=== PATIENT | male | born 1985 | race American Indian/Alaskan Native ===

== ENCOUNTER 2018-01-20 18:15 | Emergency (ER) | payer OTHER ==
[2018-01-20] MEDS ORDERED: MOTRIN PO ONE (20:26)
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
[2018-01-20 21:31] VITALS: BP 116/88
== END 2018-01-20 21:30 | disposition home or self-care (01) ==
LOC: ED 18:15
DX: M54.6 Pain in thoracic spine (principal); V89.2XXA Person injured in unspecified motor-vehicle accident, traffic, initial encounter; Y93.89 Activity, other specified; Y92.89 Other specified places as the place of occurrence of the external cause; Y99.8 Other external cause status
CPT/HCPCS: 99282

== ENCOUNTER 2019-05-29 13:08 | Emergency (ER) | payer OTHER ==
--- NOTE | 2019-05-29 13:27 | Emergency Department Report ---
Blank Doc - Documentation Documentation: 34-year-old male that presents with upper abdominal pain and nausea. This initial assessment/diagnostic orders/clinical plan/treatment(s) is/are subject to change based on patient's health status, clinical progression and re- assessment by fellow clinical providers in the ED. Further treatment and workup at subsequent clinical providers discretion. Patient/guardians urged not to elope from the ED as their condition may be serious if not clinically assessed and managed. Initial orders include: 1- Patient sent to [facility] for further evaluation and treatment 2- labs 3- UA
[2019-05-29 14:26] LABS: Basophils # (Auto) 0.1 K/mm3 (0.0-0.1); Basophils % (Auto) 0.7 % (0.0-1.8); Eosinophils # (Auto) 0.5 K/mm3 (0.0-0.4); Eosinophils % (Auto) 3.1 % (0.0-4.3); Hematocrit 38.7 % (35.5-45.6); Hemoglobin 12.7 gm/dl (11.8-15.2); Lymphocytes # (Auto) 2.1 K/mm3 (1.2-5.4); Lymphocytes % (Auto) 13.9 % (13.4-35.0); Mean Corpuscular HGB Conc 33 % (32-34); Mean Corpuscular Volume 96 fl (84-94); Monocytes # (Auto) 1.5 K/mm3 (0.0-0.8); Monocytes % (Auto) 9.8 % (0.0-7.3); Platelet Count 676 K/mm3 (140-440); Red Blood Count 4.06 M/mm3 (3.65-5.03); Red Cell Distribution Width 13.9 % (13.2-15.2)
[2019-05-29 14:50] LABS: Alanine Aminotransferase 17 units/L (7-56); Albumin 3.4 g/dL (3.9-5); BUN/Creatinine Ratio 8; Blood Urea Nitrogen 7 mg/dL (9-20); Calcium 9.6 mg/dL (8.4-10.2); Hemolysis Index 51
[2019-05-29 14:52] LABS: Bilirubin,Urine NEG (Negative); Blood,Urine SM (Negative); Color,Urine Amber (Yellow); Mucus,Urine 1+ /HPF
--- NOTE | 2019-05-29 17:12 | Emergency Department Report ---
<MARIO NEWELL - Last Filed: 05/29/19 17:27> ED General Adult HPI - General Chief complaint: Abdominal Pain Stated complaint: ABD PAIN/NIGHT SWEAT Time Seen by Provider: 05/29/19 13:26 Source: patient Mode of arrival: Ambulatory Limitations: No Limitations - History of Present Illness Initial comments: The patient presents to the emergency department for chief complaint of upper abdominal pain/chest pain and night sweats for the last couple of nights. Patient denies any nausea,vomiting, or diarrhea. Patient states that he went on a cruise just prior to [place] and drunk a lot of alcohol during the cruise. Of note the patient travel to [place] for his cruise via motor vehicle and return home via the same old transportation. Patient does complain of some mild shortness of breath especially stating he cannot catch his breath when taking a deep breath. Patient does have a past medical history of HIV but takes his m edication daily. The patient states this pain has been present and continuous for the last week . -: Sudden Location: chest, abdomen Radiation: non-radiation Severity scale (0 -10): 3 Quality: dull Consistency: constant Improves with: none Worsens with: none Associated Symptoms: denies other symptoms Treatments Prior to Arrival: none - Related Data Previous Rx's Medication Instructions Recorded Last Taken Type Cyclobenzaprine [Flexeril] 10 mg PO QHS PRN #10 tablet 01/20/18 Unknown Rx Ibuprofen [Motrin] 600 mg PO Q8H PRN #30 tablet 01/20/18 Unknown Rx Esomeprazole Magnesium [NexIUM] 40 mg PO QDAY #30 capsule. 05/29/19 Unknown Rx Allergies Allergy/AdvReac Type Severity Reaction Status Date / Time No Known Allergies Allergy Verified 01/20/18 18:20 ED Review of Systems Comment: All other systems reviewed and negative Constitutional: denies: chills, fever Eyes: denies: eye pain, eye discharge, vision change ENT: denies: ear pain, throat pain Respiratory: denies: cough, shortness of breath, wheezing Cardiovascular: denies: chest pain, palpitations Endocrine: no symptoms reported Gastrointestinal: denies: abdominal pain, nausea, diarrhea Genitourinary: denies: urgency, dysuria Musculoskeletal: denies: back pain, joint swelling, arthralgia Skin: denies: rash, lesions Neurological: denies: headache, weakness, paresthesias Psychiatric: denies: anxiety, depression Hematological/Lymphatic: denies: easy bleeding, easy bruising ED Past Medical Hx - Past Medical History Previous Medical History?: No - Surgical History Past Surgical History?: No - Social History Smoking Status: Never Smoker Substance Use Type: Alcohol, Marijuana - Medications Home Medications: Home Medications Medication Instructions Recorded Confirmed Last Taken Type Cyclobenzaprine [Flexeril] 10 mg PO QHS PRN #10 tablet 01/20/18 Unknown Rx Ibuprofen [Motrin] 600 mg PO Q8H PRN #30 tablet 01/20/18 Unknown Rx Esomeprazole Magnesium [NexIUM] 40 mg PO QDAY #30 capsule. 05/29/19 Unknown Rx ED Physical Exam - General Limitations: No Limitations General appearance: alert, in no apparent distress - Head Head exam: Present: atraumatic, normocephalic - Eye Eye exam: Present: normal appearance, PERRL, EOMI - ENT ENT exam: Present: mucous membranes moist - Neck Neck exam: Present: normal inspection - Respiratory Respiratory exam: Present: normal lung sounds bilaterally. Absent: respiratory distress - Cardiovascular Cardiovascular Exam: Present: regular rate, normal rhythm. Absent: systolic murmur, diastolic murmur, rubs, gallop - GI/Abdominal GI/Abdominal exam: Present: soft, normal bowel sounds. Absent: distended, tenderness - Rectal Rectal exam: Present: deferred - Extremities Exam Extremities exam: Present: normal inspection - Back Exam Back exam: Present: normal inspection - Neurological Exam Neurological exam: Present: alert, oriented X3, CN II-XII intact. Absent: motor sensory deficit - Psychiatric Psychiatric exam: Present: normal affect, normal mood - Skin Skin exam: Present: warm, dry, intact, normal color. Absent: rash ED Medical Decision Making - Lab Data Result diagrams: 05/29/19 13:50 05/29/19 13:50 Lab Results 05/29/19 05/29/19 05/29/19 Range/Units 13:50 13:50 14:00 WBC 14.9 H (4.5-11.0) K/mm3 RBC 4.06 (3.65-5.03) M/mm3 Hgb 12.7 (11.8-15.2) gm/dl Hct 38.7 (35.5-45.6) % MCV 96 H (84-94) fl MCH 31 (28-32) pg MCHC 33 (32-34) % RDW 13.9 (13.2-15.2) % Plt Count 676 H (140-440) K/mm3 Lymph % (Auto) 13.9 (13.4-35.0) % Baker % (Auto) 9.8 H (0.0-7.3) % Eos % (Auto) 3.1 (0.0-4.3) % Baso % (Auto) 0.7 (0.0-1.8) % Lymph # 2.1 (1.2-5.4) K/mm3 Baker # 1.5 H (0.0-0.8) K/mm3 Eos # 0.5 H (0.0-0.4) K/mm3 Baso # 0.1 (0.0-0.1) K/mm3 Seg Neutrophils % 72.5 H (40.0-70.0) % Seg Neutrophils # 10.8 H (1.8-7.7) K/mm3 Sodium 137 (137-145) mmol/L Potassium 4.4 (3.6-5.0) mmol/L Chloride 98.7 (98-107) mmol/L Carbon Dioxide 21 L (22-30) mmol/L Anion Gap 22 mmol/L BUN 7 L (9-20) mg/dL Creatinine 0.9 (0.8-1.5) mg/dL Estimated GFR > 60 ml/min BUN/Creatinine Ratio 8 % Glucose 111 H (75-100) mg/dL Calcium 9.6 (8.4-10.2) mg/dL Total Bilirubin 0.60 (0.1-1.2) mg/dL AST 19 (5-40) units/L ALT 17 (7-56) units/L Alkaline Phosphatase 102 (35-129) units/L Total Protein 8.4 H (6.3-8.2) g/dL Albumin 3.4 L (3.9-5) g/dL Albumin/Globulin Ratio 0.7 % Lipase 15 (13-60) units/L Urine Color Francesca (Yellow) Urine Turbidity Clear (Clear) Urine pH 6.0 (5.0-7.0) Ur Specific [place] 1.023 (1.003-1.030) Urine Protein 30 mg/dl (Negative) mg/dL Urine Glucose (UA) Neg (Negative) mg/dL Urine Ketones Neg (Negative) mg/dL Urine Blood Sm (Negative) Urine Nitrite Neg (Negative) Urine Bilirubin Neg (Negative) Urine Urobilinogen 2.0 (<2.0) mg/dL Ur Leukocyte Esterase Neg (Negative) Urine WBC (Auto) 2.0 (0.0-6.0) /HPF Urine RBC (Auto) 9.0 (0.0-6.0) /HPF Urine Mucus 1+ /HPF - Medical Decision Making Upon reviewing the patient's labs he did have elevated white count thus the reasoning for ordering of the abdominal series with one view chest. After discovering that the patient traveled a great distance within the last 2 weeks with the symptomology a CT of the chest was ordered to evaluate for pulmonary embolism ED Disposition Clinical Impression: Chest pain, non-cardiac Abdominal pain Qualifiers: Abdominal location: epigastric Qualified Code(s): R10.13 - Epigastric pain Disposition: ELOPED Condition: Stable Instructions: Chest Pain (ED), Acute Abdominal Pain (ED) Additional Instructions: return if worse Prescriptions: Esomeprazole Magnesium [NexIUM] 40 mg PO QDAY #30 capsule. Referrals: [facility] [Provider Group] - 3-5 Days [facility] [Provider Group] - 3-5 Days PRIMARY CARE, [Primary Care Provider] - 3-5 Days LILO CAMARENA MD [Staff Physician] - 3-5 Days Print Language: CROATIAN <GONZALEZ ROBLERO - Last Filed: 05/29/19 21:47> ED Review of Systems ROS: Stated complaint: ABD PAIN/NIGHT SWEAT Other details as noted in [facility] ED Medical Decision Making - Lab Data Result diagrams: 05/29/19 13:50 05/29/19 13:50 - Radiology Data Radiology results: report reviewed, image reviewed Findings [facility] [address] [place] [address] Cat Scan Report Signed Patient: GONZALEZ MURCIA MR#: [id number] : 1985 Acct:[id number] Age/Sex: 34 / M ADM Date: 05/29/19 Loc: ED Attending Dr: Ordering Physician: MARIO NEWELL MD Date of Service: 05/29/19 Procedure(s): CT angio chest Accession Number(s): [id number] cc: MARIO NEWELL MD CT angio chest INDICATION / CLINICAL INFORMATION: chest pain. TECHNIQUE: Axial CT images were obtained after injection of Omnipaque 350, 100 cc IV contrast using CTA protocol. 3 plane MIP / 3D reconstructions were produced. All CT scans at this location are performed using CT dose reduction for ALARA by means of automated exposure control. COMPARISON: None available. FINDINGS: The lungs contain no mass, infiltrate or pleural fluid. Negative for mediastinal mass or adenopathy. Imaging of the upper abdomen is unremarkable. No aneurysm, dissection or pulmonary embolus. IMPRESSION: Negative for pulmonary embolus or pneumonia. Signer Name: Inocente Altamirano MD Signed: 05/29/2019 7:39 PM Workstation Name: [id number] Transcribed By: ES Dictated By: Inocente Altamirano MD Electronically Authenticated By: Inocente Altamirano MD Signed Date/Time: 05/29/191938 DD/ 34 TD/TT: Findings [facility] [address] [place] [address] XRay Report Signed Patient: GONZALEZ MURCIA MR#: [id number] : 1985 Acct:[id number] Age/Sex: 34 / M ADM Date: 05/29/19 Loc: ED Attending Dr: Ordering Physician: MARIO NEWELL MD Date of Service: 05/29/19 Procedure(s): XR abd series w cxr 1V Accession Number(s): [id number] cc: MARIO NEWELL MD Fluoro Time In Minutes: CLINICAL DATA: ab pain and cough TECHNICAL DATA: PA chest, AP supine abdomen, upright or left lateral decubitus abdomen. FINDINGS: The cardiac silhouette and pulmonary vasculature are normal. The lungs are clear and well expanded. There is no evidence of focal consolidation, pneumothorax, or pleural effusion. Bowel gas pattern is nonobstructive. There is no free intraperitoneal air. There are no abnormal calcifications. Rounded opaque densities present overlying the pelvis questionable foreign body questionable outside of the pelvis IMPRESSION: No acute radiographic abnormality of the chest and abdomen. Please see comments concerning a possible foreign body Signer Name: Kyle Biggs MD Signed: 05/29/2019 5:05 PM Workstation Name: [id number] Transcribed By: WG Dictated By: Kyle Biggs MD Electronically Authenticated By: Kyle Biggs MD Signed Date/Time: 05/29/191704 DD/ 03 TD/TT: - Medical Decision Making I assumed care of the patient from Dr. Mario Newell at shift change at 1830 hrs. Lab test results were reviewed and was positive for acute leukocytosis of 14,900. At this time chest CT angiogram test is pending, the report of which showed reviewed and if negative for PE patient she'll be discharged home on medications for pain. The chest CTA report as dictated by the radiologist shows no evidence of pneumonia or PE. Patient eloped from the ED prior to receiving his official discharge paperwork or briefing on his imaging and lab test results. - Differential Diagnosis ACS; PE; GERD; Gastritis; Cholelithiasis; Pancreatitis Critical care attestation.: If time is entered above; I have spent that time in minutes in the direct care of this critically ill patient, excluding procedure time. ED Disposition Is pt being admited?: No Does the pt Need Aspirin: No Time of Disposition: 20:30
--- NOTE | 2019-05-29 19:43 | Cat Scan Report ---
CT angio chest INDICATION / CLINICAL INFORMATION: chest pain. TECHNIQUE: Axial CT images were obtained after injection of Omnipaque 350, 100 cc IV contrast using CTA protocol . 3 plane MIP / 3D reconstructions were produced. All CT scans at this location are performed using C T dose reduction for ALARA by means of automated exposure control. COMPARISON: None available. FINDINGS: The lungs contain no mass, infiltrate or pleural fluid. Negative for mediastinal mass or adenopathy. Imaging of the upper abdomen is unremarkable. No aneurysm, dissection or pulmonary embolus. IMPRESSION: Negative for pulmonary embolus or pneumonia. Signer Name: Inocente Altamirano MD Signed: 05/29/2019 7:39 PM Workstation Name: [id number]
== END 2019-05-29 20:30 | disposition home or self-care (01) ==
LOC: ED 13:08
DX: R10.10 Upper abdominal pain, unspecified (principal); R07.89 Other chest pain; F12.10 Cannabis abuse, uncomplicated; Z79.899 Other long term (current) drug therapy
CPT/HCPCS: 36415; 71275; 74022; 80053; 81001; 83690; 84484; 85025; 99284; Q9967